=== PATIENT | male | born 1975 | race Caucasian/White ===

== ENCOUNTER 2024-10-08 23:43 | Inpatient (IN) | payer MEDICAID, OTHER ==
[~2024-10-08] VITALS: Ht 180.3 cm; Wt 109.0 kg
[~2024-10-08 23:43] MED LIST: AMLO1TAB23 PO; POM PO
[2024-10-08] MEDS: NITROGLYCERIN 0.4 MG SL TAB SL ONE (23:56)
[2024-10-09] VITALS (12 sets, daily range): BP systolic 107–141; BP diastolic 65–93; PULSE 55–86; RESP 14–21; TEMP 97.7–98.4; O2SAT 93–97
[2024-10-09] MEDS: MORPHINE SULFATE 4 MG/ML SYR/VIAL IV ONE (00:13)
[2024-10-09] MEDS: HEPARIN SODIUM (PORCINE) 5000 UNITS/ML 1ML VIAL IV ONE (00:13)
[2024-10-09 00:16] LABS: Basophils # (auto) 0.1 10 ^3/uL (0-0.2); Basophils % (auto) 0.7 % (0.0-2.0); Eosinophils # (auto) 0.2 10 ^3/uL (0-0.8); Eosinophils % (auto) 1.6 % (0.0-7.0); Hematocrit 45.5 % (41.0-53.0); Hemoglobin 15.7 g/dL (13.5-17.5); Lymphocytes # (auto) 2.3 10 ^3/uL (0.4-5.4); Lymphocytes % (auto) 18.3 % (10.0-50.0); Mean Corpuscular Hemoglobin 31.2 pg (28.0-32.0); Mean Corpuscular Hgb Conc. 34.5 g/dL (32.0-36.0); Mean Corpuscular Volume 90.5 fL (80.0-100.0); Monocytes # (auto) 0.8 10 ^3/uL (0-1.3); Monocytes % (auto) 6.6 % (0.0-12.0); Neutrophils # (auto) 9.1 10 ^3/uL (1.6-8.6); Neutrophils % (auto) 72.8 % (37.0-80.0); Platelet Count (auto) 370 10^3/uL (140-450); Red Blood Cells 5.03 10^6/uL (4.5-5.90); Red Cell Distribution Width 14.4 % (11.8-14.3); White Blood Cell 12.5 10^3/uL (4.4-10.8)
--- NOTE | 2024-10-09 00:23 | ED.PDOC ---
History of Present Illness HPI Comments 49 y/o M, with a history of HTN and obesity, is [id number] ambulance for c/o chest pain, shortness of breath, headache, and fatigue, today. Patient endorses on sudden and unprovoked onset of symptoms, with no prior history of, this evening, while driving, at approximately, 30x minutes. He comments on pain being in his mid-sternum and radiating downwards to his lower sternum. Per EMS report, patient endorsed, initially, on pain being a 9/10 and was found with ST elevations via surveillance monitor and EKG. En route, patient was stated to have been given 50ug fentanyl and 324mg ASA, with mild improvement to pain. At time of assessment, patient endorses no palpitations, nausea, vomiting, fever, chills, or other associated symptoms or modifiers at this time. Chief Complaint: Chest Pain Time Seen by MD: 23:45 Reviewed Notes: Nurses Notes, Assistant Professor Sculpture Notes, Medications, Allergies Allergies: Coded Allergies: Latex (Verified Allergy, Unknown, 10/08/24) Information Source: Patient, Emergency Med Personnel Mode of Arrival: EMS Severity: Moderate Timing: Minutes Duration: Since onset Prehospital treatment: 12 Lead EKG, ASA (324mg ASA), Automatic Beam Warper Tender, Pain Meds (50 ug fentanly) Past Medical History PAST MEDICAL HISTORY: HTN Past Medical History (Other): obesity Surgical History: Denies all surgeries Family History Family History: Unknown Social History Smoker: Non-Smoker Alcohol: Denies ETOH Use Drugs: Denies Drug Use Lives In: Home Constitutional: reports: fatigue Respiratory: reports: shortness of breath Cardiovascular: reports: chest pain Neurological: reports: headache All Other Systems: Reviewed and Negative (negative unless otherwise stated above or in HPI) Physical Exam General Appearance: Obese, Severe Distress HEENT: Normal ENT Inspection, Pharynx Normal, TMs Normal Neck: Full Range of Motion, Non-Tender, Normal, Normal Inspection Respiratory: Chest Non-Tender, Lungs Clear, No Accessory Muscle Use, No Respiratory Distress, Normal Breath Sounds Cardiovascular: No Edema, No JVD, No Murmur, No Gallop, Normal Peripheral Pulses, Tachycardia Breast Exam: Deferred Gastrointestinal: No Organomegaly, Non Tender, No Pulsatile Mass, Normal Bowel Sounds, Soft Genitalia: Deferred Pelvic: Deferred Rectal: Deferred Extremities: No calf tenderness, Normal capillary refill, Normal inspection, Normal range of motion, Non-tender, No pedal edema Musculoskeletal : Extremity Location: Chest Apperance: Normal, Tenderness Neurologic: Alert, master steam yacht II-XII nml as Tested, No Motor Deficits, Normal Affect, Normal Mood, No Sensory Deficits Cerebellar Function: Normal Reflexes: Normal Skin: Dry, Normal Color, Warm Lymphatic: No Adenopathy Was a procedure done? Was a procedure done?: No EKG EKG #1: Pulse Rate (adult): 86 [place]: Normal Cardiac Rhythm: NSR Block: None Hypertrophy: None Comments ST depression in leads V2 and V3 EKG #2: Pulse Rate (adult): 88 [place]: Normal Cardiac Rhythm: NSR Block: None Hypertrophy: None ST: Normal Differential Dx Considerations may include: STEMI, ACS, PE, musculoskeletal pain X-Ray, Labs, Meds, VS Vital Signs Date Time Temp Pulse Resp B/P (MAP) Pulse Ox O2 Delivery O2 Flow Rate FiO2 10/09/24 00:23 88 10/09/24 00:13 83 16 114/76 10/08/24 23:59 98.4 90 22 149/111 (124) 98 10/08/24 23:56 149/111 Lab Test 10/08/24 23:48 Range/Units White Blood Count 12.5 H 4.4-10.8 10^3/uL Red Blood Count 5.03 4.5-5.90 10^6/uL Hemoglobin 15.7 13.5-17.5 g/dL Hematocrit 45.5 41.0-53.0 % Mean Corpuscular Volume 90.5 80.0-100.0 fL Mean Corpuscular Hemoglobin 31.2 28.0-32.0 pg Mean Corpuscular Hemoglobin Concent 34.5 32.0-36.0 g/dL Red Cell Distribution Width 14.4 H 11.8-14.3 % Platelet Count 370 140-450 10^3/uL Mean Platelet Volume 7.5 6.9-10.8 fL Neutrophils (%) (Auto) 72.8 37.0-80.0 % Lymphocytes (%) (Auto) 18.3 10.0-50.0 % Monocytes (%) (Auto) 6.6 0.0-12.0 % Eosinophils (%) (Auto) 1.6 0.0-7.0 % Basophils (%) (Auto) 0.7 0.0-2.0 % Neutrophils # (Auto) 9.1 H 1.6-8.6 10 ^3/uL Lymphocytes # (Auto) 2.3 0.4-5.4 10 ^3/uL Monocytes # (Auto) 0.8 0-1.3 10 ^3/uL Eosinophils # (Auto) 0.2 0-0.8 10 ^3/uL Basophils # (Auto) 0.1 0-0.2 10 ^3/uL Nucleated Red Blood Cells 0.0 % Prothrombin Time Pending Prothrombin Time INR Pending Activated Partial Thromboplast Time Pending Sodium Level Pending Potassium Level Pending Chloride Level Pending Carbon Dioxide Level Pending Anion Gap Pending Blood Urea Nitrogen Pending Creatinine Pending Glomerular Filtration Rate Calc Pending BUN/Creatinine Ratio Pending Serum Glucose Pending Calcium Level Pending Magnesium Level Pending Total Bilirubin Pending Aspartate Amino Transferase (AST) Pending Alanine Aminotransferase (ALT) Pending Alkaline Phosphatase Pending Troponin I High Sensitivity Pending B-Type Natriuretic Peptide Pending Total Protein Pending Albumin Pending Thyroid Stimulating Hormone (TSH) Pending Current Medications Medications (Trade) Dose Ordered Sig/Tabatha Route Start Time Stop Time Status Last Admin Nitroglycerin (Ntrostat Sublingual) 0.4 mg Q5MP ONCE SL 10/09/24 10:00 10/09/24 10:01 10/08/24 23:56 Morphine Sulfate 4 mg ONCE ONCE IV 10/09/24 00:00 10/09/24 00:01 DC 10/09/24 00:13 Heparin Sodium (Porcine) 5,000 units ONCE ONCE IV 10/09/24 00:00 10/09/24 00:01 DC 10/09/24 00:13 The patient was given an additional heparin 5000 units IV bolus, 4 mg IV morphine and nitroglycerin 0.4 mg sublingual light improvement. Chest pain with from 10/10 to 7/10 in the 2nd EKG had less ST depression in V three. troponins and labs are pending. After obtaining these results in discussing ED course with Dr. Tariq, he decided to call it a STEMI and take the patient to the lab. Time of 1ST Reevaluation: 00:15 Reevaluation 1ST: Unchanged Patient Education/Counseling: Diagnosis, Treatment Family Education/Counseling: No Family Present Departure 1 Departure Time of Disposition: 00:29 Impression: Primary Impression: Chest pain Qualified Codes: R07.9 - Chest pain, unspecified Additional Impressions: STEMI (ST elevation myocardial infarction) Qualified Codes: I21.3 - ST elevation (STEMI) myocardial infarction of unspecified site Hypertension Qualified Codes: I10 - Essential (primary) hypertension Disposition: 09 ADMITTED INPATIENT Admit to: ICU Condition: Critical Critical Care Note Critical Care Time?: Yes (45 min-critical care time only) Stability Stability form required: No Heart Score Heart Score: Heart Score Response (Comments) Value History Moderate Suspicious [address]-Deviation 2 Age 45-64 1 Risk Factors 1 or 2 risk factors 1 Troponin N/A 0 Total 5 I personally scribed for MIRNA COLON MD ([email or web address]) on 10/09/24 at 00:23. Electronically submitted by Alejandro Severino ([email or web address]). MIRNA COLON MD Oct 09, 2024 00:23
[2024-10-09 00:37] LABS: INR 1.01 (0.9-1.15); Partial Thromboplastin Time 23.6 SEC (24.5-34.5); Prothrombin Time 10.7 sec (9.3-11.8)
[2024-10-09] MEDS: ANGIOMAX 250 MG VIAL IV ONE ×2 (00:40→01:44)
[2024-10-09 00:41] LABS: Alanine Aminotransferase 35 U/L (7-40); Albumin 4.5 g/dL (3.2-4.8); Alkaline Phosphatase 86 U/L (46-116); Anion Gap 15 (5-15); Aspartate Aminotransferase 17 U/L (13-40); BUN/Creatinine Ratio 9.9 (10.0-20.0); Blood Urea Nitrogen 11 mg/dL (9-23); Carbon Dioxide 22 mmol/L (20-31); Chloride 101 mmol/L (98-107); Magnesium 1.8 mg/dL (1.6-2.6); Sodium 138 mmol/L (136-145)
[2024-10-09] MEDS: MIDAZOLAM HCL 2MG/2ML 2ml VIAL (1mg/ml) ONE ×2 (00:41→02:19)
[2024-10-09] MEDS: IODIXANOL 320MG/ML 100ML BTL IV ONE ×2 (00:41→01:32)
[2024-10-09] MEDS: VERAPAMIL 2.5MG/ML INJ 2ML VIAL IV ONE (00:41)
[2024-10-09] MEDS: fentaNYL CITRATE 100 MCG/2 ML VL ONE ×2 (00:41→02:20)
[2024-10-09] MEDS: HEPARIN SODIUM (PORCINE) 5000 UNITS/ML 1ML VIAL ONE (00:41)
[2024-10-09] MEDS: SODIUM CHL 0.9% 50 ML ONE ×2 (00:41→01:44)
[2024-10-09] MEDS: LIDOCAINE 2%HCL (LOCAL ANESTH.) INJ 20ML MDV ONE (00:41)
[2024-10-09 00:42] LABS: Bilirubin, Total 0.5 mg/dL (0.2-1.0); Calcium 11.3 mg/dL (8.7-10.4); Glucose 205 mg/dL (74-106); Total Protein 7.4 g/dL (5.7-8.2)
--- NOTE | 2024-10-09 00:43 | DVH ---
CHEST RADIOGRAPH Indication: CHEST PAIN Technique: Single frontal view of the chest was obtained COMPARISON: None FINDINGS: Lines and Tubes: None Lungs: Lung volumes are low. No definite abnormality demonstrated. Pleura: No effusion. No pneumothorax. Cardiomediastinal contours: Unremarkable Bones: Unremarkable IMPRESSION: Low lung volumes. No definite abnormality demonstrated.
--- NOTE | 2024-10-09 00:51 | DVHINCON2 ---
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 He was driving from [place] to [place] and pulled over because of substernal chest pain dizziness and lightheadedness. Substernal pressure radiating to his back and to the left side. He has experienced progressive shortness of breath over the last several weeks but this is the 1st time he has experienced chest pain. Not associated with diaphoresis but has had slight dizziness and nausea. No vomiting. Past Medical History He has past medical history significant for hypertension. No history of diabetes thyroid disorders bleeding disorders or endocrinopathies. Past Surgical History No past surgical history of significance Family History He states his mother has had a history of congestive heart failure and a pacemaker. Social History He is . Nondrinker nonsmoker no children. Allergies: Coded Allergies: Latex (Verified Allergy, Unknown, 10/08/24) Review of Systems No constitutional symptoms of fevers chills or weight loss. ENT negative. Cardiac and respiratory as noted above. Neurologically negative. GI hematologic musculoskeletal endocrine negative. Psychiatric dermatologically and immunological negative. Vital Signs Vital Signs Date Time Temp Pulse Resp B/P (MAP) Pulse Ox O2 Delivery O2 Flow Rate FiO2 10/09/24 00:34 83 16 93 Room Air* 0 21 10/09/24 00:13 114/76 10/09/24 00:05 98.4 98.4 Physical Exam Vital signs are as noted. HEENT examination is otherwise unremarkable. Orally well hydrated. Trachea central neck supple thyroid is nonpalpable there is no jugular distention no bruits. Lungs reveal good air entry no rales or rhonchi. Heart exam reveals re gular S1-S2 soft S4. Abdominal examination is unremarkable. Extremities reveal adequate perfusion without clubbing cyanosis no edema. Neurologically intact. Integumentary is otherwise within normal limits. Labs/Diagnostic Data Labs Test 10/08/24 23:48 Range/Units White Blood Count 12.5 H 4.4-10.8 10^3/uL Red Blood Count 5.03 4.5-5.90 10^6/uL Hemoglobin 15.7 13.5-17.5 g/dL Hematocrit 45.5 41.0-53.0 % Mean Corpuscular Volume 90.5 80.0-100.0 fL Mean Corpuscular Hemoglobin 31.2 28.0-32.0 pg Mean Corpuscular Hemoglobin Concent 34.5 32.0-36.0 g/dL Red Cell Distribution Width 14.4 H 11.8-14.3 % Platelet Count 370 140-450 10^3/uL Mean Platelet Volume 7.5 6.9-10.8 fL Neutrophils (%) (Auto) 72.8 37.0-80.0 % Lymphocytes (%) (Auto) 18.3 10.0-50.0 % Monocytes (%) (Auto) 6.6 0.0-12.0 % Eosinophils (%) (Auto) 1.6 0.0-7.0 % Basophils (%) (Auto) 0.7 0.0-2.0 % Neutrophils # (Auto) 9.1 H 1.6-8.6 10 ^3/uL Lymphocytes # (Auto) 2.3 0.4-5.4 10 ^3/uL Monocytes # (Auto) 0.8 0-1.3 10 ^3/uL Eosinophils # (Auto) 0.2 0-0.8 10 ^3/uL Basophils # (Auto) 0.1 0-0.2 10 ^3/uL Nucleated Red Blood Cells 0.0 % Prothrombin Time 10.7 9.3-11.8 sec Prothrombin Time INR 1.01 0.9-1.15 Activated Partial Thromboplast Time 23.6 L 24.5-34.5 SEC Sodium Level 138 136-145 mmol/L Potassium Level 3.0 L 3.5-5.1 mmol/L Chloride Level 101 98-107 mmol/L Carbon Dioxide Level 22 20-31 mmol/L Anion Gap 15 5-15 Blood Urea Nitrogen 11 9-23 mg/dL Creatinine 1.11 0.700-1.30 mg/dL Glomerular Filtration Rate Calc 81 >90 mL/min BUN/Creatinine Ratio 9.9 L 10.0-20.0 Serum Glucose 205 H 74-106 mg/dL Calcium Level 11.3 H 8.7-10.4 mg/dL Magnesium Level 1.8 1.6-2.6 mg/dL Total Bilirubin 0.5 0.2-1.0 mg/dL Aspartate Amino Transferase (AST) 17 13-40 U/L Alanine Aminotransferase (ALT) 35 7-40 U/L Alkaline Phosphatase 86 46-116 U/L Troponin I High Sensitivity 13 </=54 ng/L B-Type Natriuretic Peptide 7.04 0-100 pg/mL Total Protein 7.4 5.7-8.2 g/dL Albumin 4.5 3.2-4.8 g/dL EKG shows a sinus rhythm. There is early transition zone. ST segment depression across the anterior lateral leads suggesting posterior wall involvement. Possibly posterior wall myocardial infarction in evolution. Early repolarization in the inferior lateral leads. Assessment Acute ST segment elevation myocardial infarction. Posterior wall involvement. Inferior posterior NE. History of hypertension. Plan/Recommendation Given current circumstances recommend urgent cardiac catheterization therapeutic intervention. Patient agrees. Risks and benefits explained, informed consent given. Plan discussed with: Patient NYHA Physical activity limitations: NA Date of Service: Oct 09, 2024 Billing Provider: FRANCISCO CANALES Sr., MD Cardiology Common Codes: 65784-PMOJWAJ INP/OBS CARE (High) FRANCISCO CANALES Sr., MD Oct 09, 2024 00:51
--- NOTE | 2024-10-09 01:28 | ECG ---
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
--- NOTE | 2024-10-09 01:29 | ECG ---
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
--- NOTE | 2024-10-09 02:14 | DVHOP2 ---
Operative Report - 2 Report Details Date: 10/09/24 Preop Diagnosis: Acute STEMI Postop Diagnosis: Acute ST-elevation myocardial infarction. Surgeon: Francisco Tariq MD Anesthesiologist: Conscious sedation Anesthesia: Mac, Local Consent: The patient was informed of the risks and benefits of the procedure. These include but are not limited to complications of anesthesia, postoperative infection, incomplete relief of symptoms, recurrence of symptoms, damage to blood vessels, nerves and tendons, deep venous thrombosis, pulmonary embolism and possible need for repeat surgery in the future. Complications: No complications. Estimated Blood Loss: 5 cc Findings: Intermediate artery occlusion. Lad stenosis. RCA stenosis. Indications for Surgery: Acute STEMI. Chest pain. Name of Procedure Performed Bilateral cine coronary angiography. Left ventriculography. PTCA and stenting of the intermediate artery and Left anterior descending coronary artery. Intravascular ultrasound evaluation and stenting of the RCA. Procedure Details Procedure Details: Prior local anesthesia with 2% lidocaine to the right wrist and full informed consent obtained the patient was prepped and draped in usual fashion followed by placement of a six Malay sheath into the radial artery through which a three five EBU guide was placed through which left ventriculography right and left coronary ostial evaluation was performed. Patient tolerated the procedure well there were no complications. Hemodynamics: Aortic blood pressure was 110/70. End-diastolic pressure was 10. There was no gradient across the aortic valve on pullback. Coronary anatomy: The RCA is a large vessel with an 80% proximal stenosis. The mid and distal segments are free of significant disease. The posterolateral branch and PDA have mild plaquing without critical lesions. The left main is large and normal. Left anterior descending has a proximal 95% stenosis. The mid and distal segments are within normal limits. The diagonals are free of significant disease. The intermediate artery is 100% occluded proximally. It has haziness in its proximal portion. The circumflex is large with two marginals free of significant disease. Ventriculography in the LOPEZ projection was performed. EF is about 35-40%. Global hypokinesis especially of the anterior apical wall of the left ventricle. Coronary intervention: Angioplasty was performed. A Specter wire was placed across the area of stenosis in the intermediate RV and a two five Medtronic balloon was used to pre dilate the area of stenosis. A 3-0 by 12 mm balloon was placed into the proximal intermediate artery with successful aperture and reperfusion of the coronary artery. We then redirected the wire to the left anterior descending coronary artery used a 3-0 balloon and pre-dilated. We then placed a three five by 12 mm stent into the proximal to mid LAD. We directed the catheter in the wire to the RCA. We placed a 3.5 mm balloon to pre dilate the area of stenosis in the proximal RCA. We then placed a 4-0 by 16 mm stent into the proximal RCA however there was a distal edge dissection evaluate her with an intravascular ultrasound device. There was some haziness within the fluoroscopic screen and we had technical difficulties where the computer rebooted. Upon placing the 2nd stent distally we found that there was not an overlap of both stents for which we placed a a 3rd 3.5 x 8 mm stent into the proximal RCA overlapping the original two stents. There was excellent antegrade flow without thrombus formation under dissection. Impression: Decreased left ventricular ejection fraction. Coronary artery disease involving the RCA LAD and intermediate arteries with successful stenting and reperfusion of the intermediate RV LAD and stenting of the RCA. Normal left ventricular end-diastolic pressures. Recommendations: Dual antiplatelet therapy. Lipid-lowering therapy. Specimen: None Condition Good Disposition Still a Patient Date of Service: Oct 09, 2024 Billing Provider: FRANCISCO TARIQ Sr., MD Cardiology Common Codes: 76074-[id number] INP/OBS CARE (High) Cardiology Procedure Codes: 99242 -PTCA W/STENT PLACEMENT, 68249-FRGU ADD CORONARY BRANCH, 06645-VAVS FOR STEMI W/STENT, 41279-YXZN ADD COR ART/BRNCH/GRFT FRANCISCO TARIQ Sr., MD Oct 09, 2024 02:14
[2024-10-09] MEDS: TICAGRELOR 90 MG TAB ONE (02:19)
[2024-10-09] MEDS ORDERED: NITROGLYCERIN 0.4 MG SL TAB SL PRN (02:30)
[2024-10-09] MEDS ORDERED: HYDROmorphone HCL 2 MG/ML VL/or syr IV ONE (02:30)
[2024-10-09] MEDS ORDERED: MORPHINE SULFATE INJ 2 MG/ml SYRG IV PRN (02:30)
[2024-10-09 07:43] LABS: Albumin 4.5 g/dL (3.2-4.8); Alkaline Phosphatase 81 U/L (46-116); Anion Gap 12 (5-15); BUN/Creatinine Ratio 8.8 (10.0-20.0); Blood Urea Nitrogen 9 mg/dL (9-23); Carbon Dioxide 24 mmol/L (20-31); Chloride 100 mmol/L (98-107); Cholesterol 174 mg/dL (< 200); Sodium 136 mmol/L (136-145)
[2024-10-09 07:44] LABS: Basophils # (auto) 0 10 ^3/uL (0-0.2); Basophils % (auto) 0.3 % (0.0-2.0); Bilirubin, Total 0.5 mg/dL (0.2-1.0); Eosinophils # (auto) 0 10 ^3/uL (0-0.8); Eosinophils % (auto) 0.2 % (0.0-7.0); Hematocrit 42.3 % (41.0-53.0); Hemoglobin 14.8 g/dL (13.5-17.5); Lymphocytes # (auto) 1.7 10 ^3/uL (0.4-5.4); Lymphocytes % (auto) 12.5 % (10.0-50.0); Mean Corpuscular Hemoglobin 31.6 pg (28.0-32.0); Mean Corpuscular Volume 90.2 fL (80.0-100.0); Monocytes # (auto) 0.8 10 ^3/uL (0-1.3); Monocytes % (auto) 5.6 % (0.0-12.0); Neutrophils # (auto) 11.1 10 ^3/uL (1.6-8.6); Neutrophils % (auto) 81.4 % (37.0-80.0); Nucleated Red Blood Cells % 0.1 %; Platelet Count (auto) 346 10^3/uL (140-450); Red Blood Cells 4.69 10^6/uL (4.5-5.90); Red Cell Distribution Width 14.1 % (11.8-14.3); White Blood Cell 13.7 10^3/uL (4.4-10.8)
[2024-10-09 07:52] LABS: Alanine Aminotransferase 47 U/L (7-40); Aspartate Aminotransferase 142 U/L (13-40); Calcium 10.7 mg/dL (8.7-10.4); Glucose 202 mg/dL (74-106); HDL Cholesterol 29 mg/dL (40-59); LDL Cholesterol 129 mg/dL (< 100); Potassium 3.1 mmol/L (3.5-5.1); Triglycerides 203 mg/dL (< 150)
--- NOTE | 2024-10-09 09:11 | ECG ---
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
--- NOTE | 2024-10-09 11:58 | DVHHP2 ---
Review of Systems Allergies: Coded Allergies: Latex (Verified Allergy, Unknown, 10/08/24) Medications Current Medications Medications Dose Ordered Sig/Tbaatha Route Start Time Stop Time Status Last Admin Dose Admin Nitroglycerin 0.4 mg Q5MINP PRN SL 10/09/24 02:30 Morphine Sulfate 2 mg Q30M PRN IV 10/09/24 02:30 Exam Vital Signs Vital Signs Date Time Temp Pulse Resp B/P (MAP) Pulse Ox O2 Delivery O2 Flow Rate FiO2 10/09/24 11:38 98.3 81 16 107/68 (81) 96 98.3 10/09/24 08:00 Room Air* 0 21 Labs/Xrays Labs Test 10/09/24 06:47 10/08/24 23:48 Range/Units White Blood Count 13.7 H 4.4-10.8 10^3/uL Red Blood Count 4.69 4.5-5.90 10^6/uL Hemoglobin 14.8 13.5-17.5 g/dL Hematocrit 42.3 41.0-53.0 % Mean Corpuscular Volume 90.2 80.0-100.0 fL Mean Corpuscular Hemoglobin 31.6 28.0-32.0 pg Mean Corpuscular Hemoglobin Concent 35.0 32.0-36.0 g/dL Red Cell Distribution Width 14.1 11.8-14.3 % Platelet Count 346 140-450 10^3/uL Mean Platelet Volume 7.4 6.9-10.8 fL Neutrophils (%) (Auto) 81.4 H 37.0-80.0 % Lymphocytes (%) (Auto) 12.5 10.0-50.0 % Monocytes (%) (Auto) 5.6 0.0-12.0 % Eosinophils (%) (Auto) 0.2 0.0-7.0 % Basophils (%) (Auto) 0.3 0.0-2.0 % Neutrophils # (Auto) 11.1 H 1.6-8.6 10 ^3/uL Lymphocytes # (Auto) 1.7 0.4-5.4 10 ^3/uL Monocytes # (Auto) 0.8 0-1.3 10 ^3/uL Eosinophils # (Auto) 0 0-0.8 10 ^3/uL Basophils # (Auto) 0 0-0.2 10 ^3/uL Nucleated Red Blood Cells 0.1 % Sodium Level 136 136-145 mmol/L Potassium Level 3.1 L 3.5-5.1 mmol/L Chloride Level 100 98-107 mmol/L Carbon Dioxide Level 24 20-31 mmol/L Anion Gap 12 5-15 Blood Urea Nitrogen 9 9-23 mg/dL Creatinine 1.02 0.700-1.30 mg/dL Glomerular Filtration Rate Calc 90 >90 mL/min BUN/Creatinine Ratio 8.8 L 10.0-20.0 Serum Glucose 202 H 74-106 mg/dL Calcium Level 10.7 H 8.7-10.4 mg/dL Total Bilirubin 0.5 0.2-1.0 mg/dL Aspartate Amino Transferase (AST) 142 H 13-40 U/L Alanine Aminotransferase (ALT) 47 H 7-40 U/L Alkaline Phosphatase 81 46-116 U/L Troponin I High Sensitivity > 46348 *H </=54 ng/L Total Protein 7.0 5.7-8.2 g/dL Albumin 4.5 3.2-4.8 g/dL Triglycerides Level 203 H < 150 mg/dL Cholesterol Level 174 < 200 mg/dL LDL Cholesterol 129 H < 100 mg/dL HDL Cholesterol 29 L 40-59 mg/dL Thyroid Stimulating Hormone (TSH) 1.26 0.55-4.78 uIU/mL Prothrombin Time 10.7 9.3-11.8 sec Prothrombin Time INR 1.01 0.9-1.15 Activated Partial Thromboplast Time 23.6 L 24.5-34.5 SEC Magnesium Level 1.8 1.6-2.6 mg/dL B-Type Natriuretic Peptide 7.04 0-100 pg/mL Assessment/Plan Assessment/Plan see dictated note Plan discussed with: Patient Date of Service: Oct 09, 2024 Billing Provider: LILIANA ANDREW MD Common Visit Codes: 87748-EQVRDEO INP/OBS CARE (HIGH) LILIANA ANDREW MD Oct 09, 2024 11:58
--- NOTE | 2024-10-09 12:11 | DVHHP ---
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 The patient was also dizzy and lightheaded. He had some mild shortness of breath. The patient denies any syncope. No fever or cough. No hemoptysis. REVIEW OF SYSTEMS: Review of rest of systems are otherwise currently negative. PAST MEDICAL HISTORY: Significant for hypertension. MEDICATIONS: Unknown. ALLERGIES: TO LATEX. SOCIAL HISTORY: Denies smoking or alcohol. Lives with his brother. FAMILY HISTORY: Negative. PHYSICAL EXAMINATION: GENERAL: The patient is awake, alert. VITAL SIGNS: Temperature 98.3, pulse 81 per minute, blood pressure 107/68. SHEENT: Unremarkable. NECK: There is no JVD. No pedal edema. LUNGS: Equal bilaterally. No added sounds. CARDIOVASCULAR: S1, S2 is regular. No murmurs. ABDOMEN: Soft. There is no organomegaly. NEUROLOGIC: Nonfocal. MUSCULOSKELETAL: Normal. ASSESSMENT AND PLAN: * Acute myocardial infarction, status post ST elevation myocardial infarction, status post coronary angiography with stenting in the RCA and LAD. * Obesity. * Hypertension. MD ESTRELLA Dunn/ARTHUR TID: [id number] RECEIPT: [id number]
--- NOTE | 2024-10-09 14:04 | DVHPN2 ---
Consult Progress Note Date Seen: Oct 09, 2024 Subjective Review of Systems: CVS:Normal, RESPIRATORY:Normal, NEURO:Normal Other Systems: Denies any further cardiac symptoms Objective vital signs Vital Sign Date Time Temp Pulse Resp B/P (MAP) Pulse Ox O2 Delivery O2 Flow Rate FiO2 10/09/24 11:38 98.3 81 16 107/68 (81) 96 98.3 10/09/24 08:00 Room Air* 0 21 Total Intake and Output 10/08/24 10/08/24 10/09/24 15:00 23:00 07:00 Intake Total 250 ml Balance 250 ml medications Current Medications Medications Dose Ordered Sig/Tabatha Route Start Time Stop Time Status Last Admin Dose Admin Nitroglycerin 0.4 mg Q5MINP PRN SL 10/09/24 02:30 Morphine Sulfate 2 mg Q30M PRN IV 10/09/24 02:30 Aspirin 81 mg DAILY PO 10/10/24 10:00 Ticagrelor 90 mg BID PO 10/09/24 22:00 Atorvastatin Calcium 40 mg HS PO 10/09/24 22:00 Metoprolol Succinate 25 mg DAILY PO 10/10/24 10:00 Examination: LUNGS:Normal, CVS:Normal, NEURO:Normal laboratory and microbiology Laboratory Tests 10/09/24 06:47 Test 10/09/24 06:47 Range/Units Serum Glucose 202 H 74-106 mg/dL Problem List/Assessment/Plan Problem List/Assessment/Plan Acute ST segment elevation myocardial infarction Status post PTCA and stenting of the RCA, LAD and marginal branch including 5DES Hypertension Dyslipidemia Obesity Plan/Recommendation The patient underwent a successful PTCA with stent placement of the RCA, LAD and marginal branch. Transition to Plavix therapy including loading dose as well as ASA. Continue lipid-lowering agent and beta-linda. Preliminary transthoracic echocardiogram revealed an optimal LVEF. Follow-up with a primary pin drafting machine tender within 1-2 weeks post-discharge. Strongly instructed on risk factor modifications including Mediterranean diet, exercise, weight loss, and compliance with medical therapy at home. HgbA1C pending. There is no further cardiac work-up indicated at this time. Kindly call if in need to re-consult. Thank you for allowing us to care for this patient. Plan discussed with: Patient, Other Date of Service: Oct 09, 2024 Billing Provider: PEPE,LYUDMILA PRECISION INSPECTOR Cardiology Common Codes: [id number](LYUDMILA Martinez Oct 09, 2024 14:04
[2024-10-09] MEDS: METOPROLOL SUCCINATE XL 50 MG TAB PO ONE (14:16)
[2024-10-09] MEDS: POTASSIUM CHL 20 Meq TABLET PO ONE (14:16)
[2024-10-09] MEDS: ASPirin 81 mg TAB PO ONE (14:17)
[2024-10-09] MEDS: CLOPIDOGREL BISULFATE 75 MG TAB PO ONE (14:59)
--- NOTE | 2024-10-09 16:15 | DVHSR ---
APPROVED REPORT EXAM: Two-dimensional and M-mode echocardiogram with Doppler and color Doppler. Blood Pressure: 141/93 mmHg INDICATION [place] RISK FACTORS Height: 5'11", Weight: 231 DIMENSIONS LVDd4.9 (3.8-5.7cm)LA (2D)4.1 (1.9-4.0cm)Aortic Root3.7 (2.0-3.7cm) LVDs3.5 (2.5-4.0cm)LA (MM) (1.9-4.0cm)Aortic Cusp Exc2.2 (1.5-2.0cm) EF (%) 56.0 (55-70%)Rt. Atrium3.8 (1.9-4.0cm)Asc. Aorta3.5 cm IVSd1.2 (0.7-1.1cm)RV (D)4.0 (1.8-2.4cm) Mitral Valve MitralMitral Stenosis E wave0.43m/sMV Mean GR.mmHg A wave0.69m/sMV Peak GR.mmHg E/A ratio0.62D MVAcm2 DECEL [id number] 1/2 Timems Aortic Valve Aortic ValveAortic Stenosis V11.36m/Tom Mean GR.5mmHg V21.36m/Tom Peak GR.7mmHg LVOT Diameter2.5 (1.8-2.4cm)Doppler AVA4.91cm2 Pulmonic Valve V20.91m/s Other Information Quality : Technically LimitedRhythm : Technically limited study due to body habitus. Conclusion Sinus rhythm. Biatrial enlargement. Concentric LVH with the aortic root enlargement. Valves are normal. Mild aortic sclerosis. EF of 50% with normal RV function. Mild tricuspid insufficiency. No pericardial effusion masses or vegetations.
[2024-10-09] MEDS ORDERED: TICAGRELOR 90 MG TAB PO SCH (22:00)
[2024-10-09] MEDS: ATORVASTATIN 20 MG TAB PO SCH (22:56)
[2024-10-10 01:45] VITALS: BP 91/62; PULSE 74; RESP 19; TEMP 98.1; O2SAT 92
[2024-10-10 04:43] VITALS: BP 98/62; PULSE 69; RESP 18; TEMP 97.7; O2SAT 95
[2024-10-10 06:34] LABS: Basophils # (auto) 0.1 10 ^3/uL (0-0.2); Basophils % (auto) 0.5 % (0.0-2.0); Eosinophils # (auto) 0.2 10 ^3/uL (0-0.8); Eosinophils % (auto) 1.9 % (0.0-7.0); Hematocrit 44.1 % (41.0-53.0); Hemoglobin 15.1 g/dL (13.5-17.5); Lymphocytes # (auto) 2.5 10 ^3/uL (0.4-5.4); Lymphocytes % (auto) 22.7 % (10.0-50.0); Mean Corpuscular Hemoglobin 31.5 pg (28.0-32.0); Mean Corpuscular Hgb Conc. 34.3 g/dL (32.0-36.0); Mean Corpuscular Volume 91.9 fL (80.0-100.0); Monocytes # (auto) 0.7 10 ^3/uL (0-1.3); Monocytes % (auto) 6.8 % (0.0-12.0); Neutrophils # (auto) 7.4 10 ^3/uL (1.6-8.6); Neutrophils % (auto) 68.1 % (37.0-80.0); Platelet Count (auto) 308 10^3/uL (140-450); Red Cell Distribution Width 14.4 % (11.8-14.3); White Blood Cell 10.9 10^3/uL (4.4-10.8)
[2024-10-10 06:45] LABS: Chloride 104 mmol/L (98-107); Sodium 140 mmol/L (136-145)
[2024-10-10 06:46] LABS: Anion Gap 12 (5-15); Calcium 10.7 mg/dL (8.7-10.4); Carbon Dioxide 24 mmol/L (20-31); Potassium 3.4 mmol/L (3.5-5.1)
[2024-10-10 06:51] LABS: Blood Urea Nitrogen 13 mg/dL (9-23)
[2024-10-10 06:52] LABS: Magnesium 2.1 mg/dL (1.6-2.6)
[2024-10-10 06:55] LABS: Glucose 150 mg/dL (74-106)
[2024-10-10 08:00] VITALS: PULSE 79
[2024-10-10 08:05] VITALS: BP 94/52; PULSE 69; RESP 19; TEMP 97.8; O2SAT 94
[2024-10-10] MEDS: ASPirin 81 mg TAB PO SCH (08:53)
[2024-10-10] MEDS: CLOPIDOGREL BISULFATE 75 MG TAB PO SCH (08:53)
[2024-10-10] MEDS: METOPROLOL SUCCINATE XL 50 MG TAB PO SCH (08:54)
[2024-10-10 11:56] VITALS: BP 106/64; PULSE 70; RESP 18; TEMP 98; O2SAT 96
--- NOTE | 2024-10-10 14:46 | DVHDS2 ---
Discharge Summary Date of Admission Oct 09, 2024 at 02:18 Date of Discharge: Oct 10, 2024 Labs/Diagnostic Data: Laboratory Results Test 10/10/24 05:22 10/09/24 06:47 10/08/24 23:48 White Blood Count 10.9 10^3/uL (4.4-10.8) Red Blood Count 4.80 10^6/uL (4.5-5.90) Hemoglobin 15.1 g/dL (13.5-17.5) Hematocrit 44.1 % (41.0-53.0) Mean Corpuscular Volume 91.9 fL (80.0-100.0) Mean Corpuscular Hemoglobin 31.5 pg (28.0-32.0) Mean Corpuscular Hemoglobin Concent 34.3 g/dL (32.0-36.0) Red Cell Distribution Width 14.4 % (11.8-14.3) Platelet Count 308 10^3/uL (140-450) Mean Platelet Volume 7.5 fL (6.9-10.8) Neutrophils (%) (Auto) 68.1 % (37.0-80.0) Lymphocytes (%) (Auto) 22.7 % (10.0-50.0) Monocytes (%) (Auto) 6.8 % (0.0-12.0) Eosinophils (%) (Auto) 1.9 % (0.0-7.0) Basophils (%) (Auto) 0.5 % (0.0-2.0) Neutrophils # (Auto) 7.4 10 ^3/uL (1.6-8.6) Lymphocytes # (Auto) 2.5 10 ^3/uL (0.4-5.4) Monocytes # (Auto) 0.7 10 ^3/uL (0-1.3) Eosinophils # (Auto) 0.2 10 ^3/uL (0-0.8) Basophils # (Auto) 0.1 10 ^3/uL (0-0.2) Nucleated Red Blood Cells 0.0 % Sodium Level 140 mmol/L (136-145) Potassium Level 3.4 mmol/L (3.5-5.1) Chloride Level 104 mmol/L (98-107) Carbon Dioxide Level 24 mmol/L (20-31) Anion Gap 12 (5-15) Blood Urea Nitrogen 13 mg/dL (9-23) Creatinine 1.00 mg/dL (0.700-1.30) Glomerular Filtration Rate Calc 92 mL/min (>90) BUN/Creatinine Ratio 13.0 (10.0-20.0) Serum Glucose 150 mg/dL (74-106) Calcium Level 10.7 mg/dL (8.7-10.4) Magnesium Level 2.1 mg/dL (1.6-2.6) Hemoglobin A1c 5.9 % A1C (<5.7) Total Bilirubin 0.5 mg/dL (0.2-1.0) Aspartate Amino Transferase (AST) 142 U/L (13-40) Alanine Aminotransferase (ALT) 47 U/L (7-40) Alkaline Phosphatase 81 U/L (46-116) Troponin I High Sensitivity > 14231 ng/L (</=54) Total Protein 7.0 g/dL (5.7-8.2) Albumin 4.5 g/dL (3.2-4.8) Triglycerides Level 203 mg/dL (< 150) Cholesterol Level 174 mg/dL (< 200) LDL Cholesterol 129 mg/dL (< 100) HDL Cholesterol 29 mg/dL (40-59) Thyroid Stimulating Hormone (TSH) 1.26 uIU/mL (0.55-4.78) Prothrombin Time 10.7 sec (9.3-11.8) Prothrombin Time INR 1.01 (0.9-1.15) Activated Partial Thromboplast Time 23.6 SEC (24.5-34.5) B-Type Natriuretic Peptide 7.04 pg/mL (0-100) Other Laboratory Tests 10/10/24 05:22 Brief Hx & Hospital Course: SEE DICTATED NOTE Condition at Discharge: Good Final Diagnosis/Problems List ACUTE [place] Discharge Disposition: Home Discharge Instruct/Medications Diet: Cardiac 2g Na,low cholest Activity: No Restrictions, As Tolerated Follow Up/Referral: FU WITH PCP/CARDIOLOGY IN 1 WK Medications: SCRIPT TO PHARMACY Discharge Statement: "Patient was advised to return to the ER or call 911 if any headaches, dizziness, shortness of breath, chest pain, abdominal pain, bleeding, fevers, or worsening of medical condition. Patient was counseled about treatment plan, medications, possible side effects, patientverbalized understanding. All questions were answered to the best of my ability. This discharge took greater then 30 minutes in planning, reviewing documentation, counseling the patient, and discussing with other team members." ASSESSMENT ASSESSMENT Assessment ACUTE [place] Date of Service: Oct 10, 2024 Billing Provider: LILIANA ANDREW MD Common Visit Codes: 68307-VEN/OBS DISCH DAY >30min LILIANA ANDREW MD Oct 10, 2024 14:46
[2024-10-10] MEDS ORDERED: ASPI-498 PO (14:49)
[2024-10-10] MEDS ORDERED: METO25TA36 PO (14:49)
[2024-10-10] MEDS ORDERED: ATOR-507 PO (14:49)
[2024-10-10] MEDS ORDERED: CLOP75TA28 PO (14:49)
--- NOTE | 2024-10-10 15:08 | DVHDS ---
DATE OF DISCHARGE: 10/10/2024 HISTORY OF PRESENT ILLNESS: The patient is a 49-year-old gentleman who was admitted with complaints of chest pain and lightheadedness. The patient has previous history of hypertension. HOSPITAL COURSE: The patient had a code STEMI. The patient underwent emergent coronary angiography with subsequent stenting of the LAD as well as RCA. The patient had echocardiogram done that showed ejection fraction of 50%. The patient has now been cleared for discharge. The patient's LDL was 129. A1c was 5.9. He will be discharged home, to be on aspirin 81 mg daily, Plavix 75 mg daily, Lipitor 40 mg p.o. at bedtime, and Toprol-XL 25 mg daily. He will follow up with his primary and cyber incident handler in 1 week. FINAL DIAGNOSES: Therefore, * Acute myocardial infarction, status post coronary angiography and stenting. * Obesity. * Hypertension. Time spent in discharge planning and review of plan with the patient and nursing was 38 minutes. MD ESTRELLA Dunn/KAREY TID: [id number] RECEIPT: [id number]
--- NOTE | 2024-10-10 16:03 | DVHPN2 ---
Consult Progress Note Subjective Other Systems: Patient denies any cardiac symptoms. Objective vital signs Vital Sign Date Time Temp Pulse Resp B/P (MAP) Pulse Ox O2 Delivery O2 Flow Rate FiO2 10/10/24 11:56 98.0 70 18 106/64 (78) 96 98.0 10/10/24 08:00 Room Air* 0 21 Total Intake and Output 10/09/24 10/09/24 10/10/24 15:00 23:00 07:00 Intake Total 500 ml Output Total 2525 ml Balance -2025 ml medications Current Medications Medications Dose Ordered Sig/Tabatha Route Start Time Stop Time Status Last Admin Dose Admin Nitroglycerin 0.4 mg Q5MINP PRN SL 10/09/24 02:30 Morphine Sulfate 2 mg Q30M PRN IV 10/09/24 02:30 Aspirin 81 mg DAILY PO 10/10/24 10:00 10/10/24 08:53 81 MG Atorvastatin Calcium 40 mg HS PO 10/09/24 22:00 10/09/24 22:56 40 MG Metoprolol Succinate 25 mg DAILY PO 10/10/24 10:00 Clopidogrel Bisulfate 75 mg DAILY PO 10/10/24 10:00 10/10/24 08:53 75 MG Examination: GENERAL:Normal, LUNGS:Normal, CVS:Normal, NEURO:Normal laboratory and microbiology Laboratory Tests 10/10/24 05:22 Test 10/10/24 05:22 Range/Units Serum Glucose 150 H 74-106 mg/dL Problem List/Assessment/Plan Problem List/Assessment/Plan Acute ST segment elevation myocardial infarction Status post PTCA and stenting of the RCA, LAD and marginal branch including 5DES Hypertension Dyslipidemia Obesity Plan/Recommendation (Dr. Tariq): The patient underwent a successful PTCA with stent placement of the RCA, LAD and marginal branch on 10/09/24. Continue dual antiplatelet therapy with Plavix and aspirin. Continue lipid-lowering agent and beta-linda. Transthoracic echocardiogram reveals an EF of 50% with normal RV function. Follow-up with a primary temporary office assistant within 1-2 weeks post-discharge. Strongly instructed on risk factor modifications including Mediterranean diet, exercise, weight loss, and compliance with medical therapy at home. There is no further cardiac work- up indicated at this time. Thank you for allowing us to care for this patient. Plan discussed with: Patient Date of Service: Oct 10, 2024 Billing Provider: BOZENA BAUTISTA Common Visit Codes: [id number] INP/OBS CARE(HIGH) BOZENA BAUTISTA Oct 10, 2024 16:03
[2024-10-10] MEDS: POTASSIUM CHL 20 Meq TABLET PO ONE (16:11)
[2024-10-10 16:27] VITALS: BP 112/78; PULSE 74; RESP 20; TEMP 98.2; O2SAT 96
== END 2024-10-10 17:00 | disposition home or self-care (01) | DRG 174 ==
LOC: EDBD 23:43 → ER 23:43 → TELE 10-09 02:18 → TELE-WESTW 10-09 03:10
PROVIDERS: ADMIT Internal Medicine; ATTEND Internal Medicine
PROC: 027136Z Dilation of Coronary Artery, Two Arteries with Three Drug-eluting Intraluminal Devices, Percutaneous Approach (ICD-10-PCS; principal; 2024-10-09)
PROC: B240ZZ3 Ultrasonography of Single Coronary Artery, Intravascular (ICD-10-PCS; 2024-10-09)
PROC: B211YZZ Fluoroscopy of Multiple Coronary Arteries using Other Contrast (ICD-10-PCS; 2024-10-09)
PROC: B215YZZ Fluoroscopy of Left Heart using Other Contrast (ICD-10-PCS; 2024-10-09)
PROC: 4A023N7 Measurement of Cardiac Sampling and Pressure, Left Heart, Percutaneous Approach (ICD-10-PCS; 2024-10-09)
DX: I21.19 ST elevation (STEMI) myocardial infarction involving other coronary artery of inferior wall (principal); E66.9 Obesity, unspecified; I10 Essential (primary) hypertension; I25.10 Atherosclerotic heart disease of native coronary artery without angina pectoris; E78.5 Hyperlipidemia, unspecified; Z91.040 Latex allergy status; Z79.899 Other long term (current) drug therapy; I25.2 Old myocardial infarction; Z68.33 Body mass index [BMI] 33.0-33.9, adult; Z82.49 Family history of ischemic heart disease and other diseases of the circulatory system; Z79.02 Long term (current) use of antithrombotics/antiplatelets; Z79.82 Long term (current) use of aspirin
CPT/HCPCS: 36415; 71045; 80048; 80053; 80061; 83036; 83735; 83880; 84443; 84484; 85025; 85610; 85730; 86850; 86900; 86901; 92929; 92941; 93005; 93306; 93458; 99152; 99291; C1887; G0378; J2250; Q9967